=== PATIENT | female | born 1950 | race Caucasian/White ===

== ENCOUNTER 2021-12-30 16:32 | Outpatient (CLI) | payer MEDICARE, BC, SELFPAY ==
[2021-12-30 11:43] LABS: Abs Immature Grans 0.01 10^3/uL (0.0-0.06); Absolute Basophil Count 0.02 10^3/uL (0.0-0.2); Absolute Eosinophil Count 0.01 10^3/uL (0.0-0.7); Absolute Lymphocyte Count 1.02 10^3/uL (1.2-3.4); Absolute Monocyte Count 0.36 10^3/uL (0.1-0.8); Basophils % 0.5; Eosinophils % 0.2; HCT 38.3 % (36.0-46.0); HGB 12.7 g/dL (11.2-15.7); Immature Grans % 0.2; Lymphocytes % 24.8; MCHC 33.2 % (32.0-36.0); MCV 90.3 fL (80-95); MPV 9.1 fL (8.0-11.0); Monocytes % 8.7; Neutrophils % 65.6; Platelet Count 223 10^3/uL (130-400); RBC 4.24 10^6/uL (3.93-5.22); RDW 12.1 % (11.7-14.6); RDW-SD 40.1 fL; WBC 4.12 10^3/uL (4.4-10.8)
[2021-12-30 11:57] LABS: ALT 16 U/L (14-59); AST 17 U/L (15-37); Albumin 3.8 g/dL (3.4-5.0); Alkaline Phosphatase 90 U/L (46-116); Anion Gap 4.3 mmol/L (3-11); BUN 14 mg/dL (7-18); Bilirubin, Total 0.4 mg/dL (0.2-1.0); CO2 29.7 mmol/L (21.0-32.0); CREATININE 1.1 mg/dL (0.55-1.02); Calcium 9.1 mg/dL (8.5-10.1); Chloride 103 mmol/L (98-107); Estimated GFR 48.69 (mL/min/1.73m2); Glucose 85 mg/dL (74-106); Magnesium 2.2 mg/dL (1.8-2.4); Potassium 3.9 mmol/L (3.5-5.1); Sodium 137 mmol/L (136-145); Total Protein 7.3 g/dL (6.4-8.2)
== END 2021-12-30 16:33 | disposition home or self-care (01) ==
LOC: LBO 16:33
PROVIDERS: PCP Physician Assistant; Visit Provider Internal Medicine
DX: C52 Malignant neoplasm of vagina (principal)
CPT/HCPCS: 36415; 80053; 83735; 85025

== ENCOUNTER 2022-01-05 02:29 | Outpatient (CLI) | payer MEDICARE, BC, SELFPAY ==
[2022-01-05 13:05] LABS: Abs Immature Grans 0.05 10^3/uL (0.0-0.06); Absolute Basophil Count 0.02 10^3/uL (0.0-0.2); Absolute Eosinophil Count 0.12 10^3/uL (0.0-0.7); Absolute Lymphocyte Count 0.67 10^3/uL (1.2-3.4); Absolute Monocyte Count 0.38 10^3/uL (0.1-0.8); Absolute Neutrophil Count 3.65 10^3/uL (1.2-6.7); Basophils % 0.4; Eosinophils % 2.5; HCT 37.4 % (36.0-46.0); HGB 12.2 g/dL (11.2-15.7); Lymphocytes % 13.7; MCH 29.3 pg (27.0-33.0); MCHC 32.6 % (32.0-36.0); MCV 90 fL (80-95); MPV 9.1 fL (8.0-11.0); Monocytes % 7.8; Neutrophils % 74.6; Platelet Count 171 10^3/uL (130-400); RBC 4.17 10^6/uL (3.93-5.22); RDW-SD 39.4 fL; WBC 4.89 10^3/uL (4.4-10.8)
[2022-01-05 13:30] LABS: ALT 25 U/L (14-59); AST 21 U/L (15-37); Albumin 3.5 g/dL (3.4-5.0); Alkaline Phosphatase 84 U/L (46-116); BUN 23 mg/dL (7-18); Bilirubin, Total 0.4 mg/dL (0.2-1.0); CREATININE 1.2 mg/dL (0.55-1.02); Calcium 8.8 mg/dL (8.5-10.1); Chloride 102 mmol/L (98-107); Estimated GFR 44.04 (mL/min/1.73m2); Glucose 112 mg/dL (74-106); Potassium 3.9 mmol/L (3.5-5.1); Sodium 135 mmol/L (136-145); Total Protein 6.9 g/dL (6.4-8.2)
== END 2022-01-05 02:30 | disposition home or self-care (01) ==
LOC: LBO 02:29
PROVIDERS: PCP Physician Assistant; Visit Provider Internal Medicine
DX: C52 Malignant neoplasm of vagina (principal)
CPT/HCPCS: 36415; 80053; 83735; 85025

== ENCOUNTER 2022-01-12 01:45 | Outpatient (CLI) | payer MEDICARE, BC, SELFPAY ==
[2022-01-12 12:15] LABS: Abs Immature Grans 0.01 10^3/uL (0.0-0.06); Absolute Basophil Count 0.01 10^3/uL (0.0-0.2); Absolute Eosinophil Count 0.08 10^3/uL (0.0-0.7); Absolute Lymphocyte Count 0.45 10^3/uL (1.2-3.4); Absolute Monocyte Count 0.37 10^3/uL (0.1-0.8); Absolute Neutrophil Count 4.41 10^3/uL (1.2-6.7); Basophils % 0.2; Eosinophils % 1.5; HCT 33.8 % (36.0-46.0); HGB 11.2 g/dL (11.2-15.7); Immature Grans % 0.2; Lymphocytes % 8.4; MCH 29.6 pg (27.0-33.0); MCHC 33.1 % (32.0-36.0); MCV 89 fL (80-95); MPV 8.9 fL (8.0-11.0); Monocytes % 6.9; Neutrophils % 82.8; Platelet Count 139 10^3/uL (130-400); RBC 3.79 10^6/uL (3.93-5.22); RDW 11.9 % (11.7-14.6); WBC 5.33 10^3/uL (4.4-10.8)
[2022-01-12 12:33] LABS: ALT 29 U/L (14-59); AST 21 U/L (15-37); Albumin 3.5 g/dL (3.4-5.0); Alkaline Phosphatase 87 U/L (46-116); Anion Gap 6.1 mmol/L (3-11); BUN 21 mg/dL (7-18); Bilirubin, Total 0.5 mg/dL (0.2-1.0); CO2 28.9 mmol/L (21.0-32.0); CREATININE 1.2 mg/dL (0.55-1.02); Calcium 8.6 mg/dL (8.5-10.1); Chloride 98 mmol/L (98-107); Estimated GFR 44.04 (mL/min/1.73m2); Glucose 87 mg/dL (74-106); Magnesium 1.4 mg/dL (1.8-2.4); Potassium 3.7 mmol/L (3.5-5.1); Sodium 133 mmol/L (136-145); Total Protein 6.8 g/dL (6.4-8.2)
== END 2022-01-12 01:46 | disposition home or self-care (01) ==
LOC: LBO 01:46
PROVIDERS: PCP Physician Assistant; Visit Provider Internal Medicine
DX: C52 Malignant neoplasm of vagina (principal)
CPT/HCPCS: 36415; 80053; 83735; 85025

== ENCOUNTER 2022-01-19 03:31 | Outpatient (CLI) | payer MEDICARE, BC, SELFPAY ==
[2022-01-19 11:50] LABS: Abs Immature Grans 0.01 10^3/uL (0.0-0.06); Absolute Basophil Count 0.02 10^3/uL (0.0-0.2); Absolute Eosinophil Count 0.15 10^3/uL (0.0-0.7); Absolute Lymphocyte Count 0.44 10^3/uL (1.2-3.4); Absolute Monocyte Count 0.42 10^3/uL (0.1-0.8); Absolute Neutrophil Count 2.57 10^3/uL (1.2-6.7); Basophils % 0.6; Eosinophils % 4.2; HCT 31.3 % (36.0-46.0); HGB 10.3 g/dL (11.2-15.7); Immature Grans % 0.3; Lymphocytes % 12.2; MCH 29.4 pg (27.0-33.0); MCHC 32.9 % (32.0-36.0); MCV 89 fL (80-95); MPV 8.9 fL (8.0-11.0); Monocytes % 11.6; Neutrophils % 71.1; Platelet Count 125 10^3/uL (130-400); RDW 11.9 % (11.7-14.6); RDW-SD 37.8 fL; WBC 3.61 10^3/uL (4.4-10.8)
[2022-01-19 12:10] LABS: ALT 25 U/L (14-59); AST 18 U/L (15-37); Albumin 3.4 g/dL (3.4-5.0); Alkaline Phosphatase 77 U/L (46-116); Anion Gap 6.6 mmol/L (3-11); BUN 19 mg/dL (7-18); Bilirubin, Total 0.3 mg/dL (0.2-1.0); CO2 29.4 mmol/L (21.0-32.0); CREATININE 1.3 mg/dL (0.55-1.02); Calcium 8.6 mg/dL (8.5-10.1); Chloride 98 mmol/L (98-107); Estimated GFR 40.15 (mL/min/1.73m2); Glucose 88 mg/dL (74-106); Potassium 3.8 mmol/L (3.5-5.1); Sodium 134 mmol/L (136-145); Total Protein 6.6 g/dL (6.4-8.2)
== END 2022-01-19 03:32 | disposition home or self-care (01) ==
LOC: LBO 03:31
PROVIDERS: PCP Physician Assistant; Visit Provider Internal Medicine
DX: C52 Malignant neoplasm of vagina (principal)
CPT/HCPCS: 36415; 80053; 83735; 85025

== ENCOUNTER 2022-01-26 03:12 | Outpatient (CLI) | payer MEDICARE, BC, SELFPAY ==
[2022-01-26 09:40] LABS: Abs Immature Grans 0.01 10^3/uL (0.0-0.06); Absolute Basophil Count 0.01 10^3/uL (0.0-0.2); Absolute Eosinophil Count 0.05 10^3/uL (0.0-0.7); Absolute Monocyte Count 0.33 10^3/uL (0.1-0.8); Absolute Neutrophil Count 2.23 10^3/uL (1.2-6.7); Basophils % 0.3; Eosinophils % 1.7; HCT 31.4 % (36.0-46.0); HGB 10.6 g/dL (11.2-15.7); Immature Grans % 0.3; Lymphocytes % 10.2; MCH 29.6 pg (27.0-33.0); MCHC 33.8 % (32.0-36.0); MCV 88 fL (80-95); MPV 9.5 fL (8.0-11.0); Monocytes % 11.3; Neutrophils % 76.2; RBC 3.58 10^6/uL (3.93-5.22); RDW 11.7 % (11.7-14.6); RDW-SD 37.6 fL; WBC 2.93 10^3/uL (4.4-10.8)
[2022-01-26 09:51] LABS: ALT 44 U/L (14-59); AST 24 U/L (15-37); Albumin 3.4 g/dL (3.4-5.0); Alkaline Phosphatase 80 U/L (46-116); BUN 21 mg/dL (7-18); Bilirubin, Total 0.3 mg/dL (0.2-1.0); CREATININE 1.2 mg/dL (0.55-1.02); Calcium 8.8 mg/dL (8.5-10.1); Chloride 97 mmol/L (98-107); Estimated GFR 44.04 (mL/min/1.73m2); Glucose 91 mg/dL (74-106); Magnesium 1.9 mg/dL (1.8-2.4); Potassium 3.6 mmol/L (3.5-5.1); Sodium 133 mmol/L (136-145); Total Protein 6.7 g/dL (6.4-8.2)
[2022-01-26 10:03] LABS: Platelet Count 79 10^3/uL (130-400)
== END 2022-01-26 03:13 | disposition home or self-care (01) ==
LOC: LBO 03:13
PROVIDERS: PCP Physician Assistant; Visit Provider Internal Medicine
DX: C52 Malignant neoplasm of vagina (principal)
CPT/HCPCS: 36415; 80053; 83735; 85025

== ENCOUNTER 2022-02-03 02:46 | Outpatient (CLI) | payer MEDICARE, BC, SELFPAY ==
[2022-02-03 08:51] LABS: Absolute Basophil Count 0.01 10^3/uL (0.0-0.2); Absolute Eosinophil Count 0.02 10^3/uL (0.0-0.7); Absolute Lymphocyte Count 0.21 10^3/uL (1.2-3.4); Absolute Monocyte Count 0.14 10^3/uL (0.1-0.8); Absolute Neutrophil Count 0.66 10^3/uL (1.2-6.7); Eosinophils % 1.9; HCT 26.7 % (36.0-46.0); HGB 9.2 g/dL (11.2-15.7); Lymphocytes % 20.2; MCH 29.2 pg (27.0-33.0); MCHC 34.5 % (32.0-36.0); MCV 85 fL (80-95); MPV 9.3 fL (8.0-11.0); Monocytes % 13.5; Neutrophils % 63.4; RBC 3.15 10^6/uL (3.93-5.22); RDW 11.7 % (11.7-14.6); RDW-SD 35.4 fL
[2022-02-03 09:05] LABS: ALT 32 U/L (14-59); AST 20 U/L (15-37); Albumin 3.2 g/dL (3.4-5.0); Alkaline Phosphatase 72 U/L (46-116); BUN 16 mg/dL (7-18); Bilirubin, Total 0.3 mg/dL (0.2-1.0); CREATININE 1.3 mg/dL (0.55-1.02); Calcium 8.9 mg/dL (8.5-10.1); Chloride 103 mmol/L (98-107); Estimated GFR 40.15 (mL/min/1.73m2); Glucose 100 mg/dL (74-106); Magnesium 1.6 mg/dL (1.8-2.4); Potassium 3.9 mmol/L (3.5-5.1); Sodium 139 mmol/L (136-145); Total Protein 6.3 g/dL (6.4-8.2)
[2022-02-03 09:49] LABS: Diff Comment Agrees w/ Instrument; RBC Morphology Normal
[2022-02-03 09:58] LABS: Platelet Count 44 10^3/uL (130-400); WBC 1.04 10^3/uL (4.4-10.8)
== END 2022-02-03 02:47 | disposition home or self-care (01) ==
LOC: LBO 02:46
PROVIDERS: Internal Medicine; PCP Physician Assistant; Visit Provider Internal Medicine Hematology & Oncology
DX: C52 Malignant neoplasm of vagina (principal)
CPT/HCPCS: 36415; 80053; 83735; 85025

== ENCOUNTER 2022-02-10 01:23 | Outpatient (CLI) | payer MEDICARE, BC, SELFPAY ==
[2022-02-10 09:33] LABS: HCT 24.8 % (36.0-46.0); HGB 8.6 g/dL (11.2-15.7); MCH 29.7 pg (27.0-33.0); MCHC 34.7 % (32.0-36.0); MCV 86 fL (80-95); MPV 9.4 fL (8.0-11.0); Platelet Count 122 10^3/uL (130-400); RDW 12.1 % (11.7-14.6); RDW-SD 35.9 fL
[2022-02-10 09:50] LABS: ALT 22 U/L (14-59); AST 18 U/L (15-37); Albumin 3.3 g/dL (3.4-5.0); Alkaline Phosphatase 73 U/L (46-116); Anion Gap 5.6 mmol/L (3-11); BUN 22 mg/dL (7-18); Bilirubin, Total 0.3 mg/dL (0.2-1.0); CO2 30.4 mmol/L (21.0-32.0); CREATININE 1.2 mg/dL (0.55-1.02); Calcium 8.9 mg/dL (8.5-10.1); Chloride 101 mmol/L (98-107); Estimated GFR 44.04 (mL/min/1.73m2); Glucose 95 mg/dL (74-106); Magnesium 1.9 mg/dL (1.8-2.4); Potassium 4.4 mmol/L (3.5-5.1); Sodium 137 mmol/L (136-145); Total Protein 6.4 g/dL (6.4-8.2)
[2022-02-10 10:02] LABS: Bands % 1
[2022-02-10 10:03] LABS: Absolute Eosinophil Count 0.03 10^3/uL (0.0-0.7); Absolute Lymphocyte Count 0.42 10^3/uL (1.2-3.4); Absolute Monocyte Count 0.34 10^3/uL (0.1-0.8); Diff Comment Manual Differential; RBC Morphology Normal
[2022-02-10 10:13] LABS: WBC 1.16 10^3/uL (4.4-10.8)
[2022-02-10 10:14] LABS: Absolute Neutrophil Count 0.37 10^3/uL (1.2-6.7)
== END 2022-02-10 01:24 | disposition home or self-care (01) ==
LOC: LBO 01:25
PROVIDERS: PCP Physician Assistant; Visit Provider Internal Medicine
DX: C52 Malignant neoplasm of vagina (principal)
CPT/HCPCS: 36415; 80053; 83735; 85025

== ENCOUNTER 2022-02-17 02:19 | Outpatient (CLI) | payer MEDICARE, BC, SELFPAY ==
[2022-02-17 08:14] LABS: Absolute Eosinophil Count 0.02 10^3/uL (0.0-0.7); HCT 24.8 % (36.0-46.0); HGB 8.2 g/dL (11.2-15.7); MCH 29.3 pg (27.0-33.0); MCHC 33.1 % (32.0-36.0); MCV 89 fL (80-95); MPV 8.9 fL (8.0-11.0); Platelet Count 220 10^3/uL (130-400); RDW-SD 39.4 fL; WBC 2.19 10^3/uL (4.4-10.8)
[2022-02-17 08:35] LABS: ALT 18 U/L (14-59); AST 17 U/L (15-37); Albumin 3.3 g/dL (3.4-5.0); Alkaline Phosphatase 65 U/L (46-116); Anion Gap 4.5 mmol/L (3-11); BUN 16 mg/dL (7-18); Bilirubin, Total 0.2 mg/dL (0.2-1.0); CO2 30.5 mmol/L (21.0-32.0); CREATININE 1.3 mg/dL (0.55-1.02); Calcium 9.1 mg/dL (8.5-10.1); Chloride 104 mmol/L (98-107); Estimated GFR 40.15 (mL/min/1.73m2); Glucose 94 mg/dL (74-106); Potassium 4.3 mmol/L (3.5-5.1); Sodium 139 mmol/L (136-145); Total Protein 6.4 g/dL (6.4-8.2)
[2022-02-17 08:43] LABS: Absolute Lymphocyte Count 0.31 10^3/uL (1.2-3.4); Absolute Monocyte Count 0.44 10^3/uL (0.1-0.8); Absolute Neutrophil Count 1.36 10^3/uL (1.2-6.7); Bands % 2; Diff Comment Manual Differential
[2022-02-17 08:44] LABS: Absolute Basophil Count 0.04 10^3/uL (0.0-0.2); Metamyelocytes % 1; Polychromasia Present
== END 2022-02-17 02:20 | disposition home or self-care (01) ==
LOC: LBO 02:19
PROVIDERS: PCP Physician Assistant; Visit Provider Internal Medicine
DX: C52 Malignant neoplasm of vagina (principal)
CPT/HCPCS: 36415; 80053; 83735; 85025

== ENCOUNTER 2022-02-19 04:04 | Outpatient (CLI) | payer MEDICARE, BC, SELFPAY ==
[2022-02-19 13:10] LABS: Abs Immature Grans 0.05 10^3/uL (0.0-0.06); Absolute Basophil Count 0.02 10^3/uL (0.0-0.2); Absolute Eosinophil Count 0.02 10^3/uL (0.0-0.7); Absolute Lymphocyte Count 0.35 10^3/uL (1.2-3.4); Absolute Monocyte Count 0.61 10^3/uL (0.1-0.8); Absolute Neutrophil Count 1.49 10^3/uL (1.2-6.7); Basophils % 0.8; Eosinophils % 0.8; HCT 23.5 % (36.0-46.0); HGB 7.9 g/dL (11.2-15.7); Lymphocytes % 13.8; MCH 29.6 pg (27.0-33.0); MCHC 33.6 % (32.0-36.0); MCV 88 fL (80-95); MPV 8.6 fL (8.0-11.0); Neutrophils % 58.6; Platelet Count 219 10^3/uL (130-400); RBC 2.67 10^6/uL (3.93-5.22); RDW 14.6 % (11.7-14.6); RDW-SD 41.4 fL; WBC 2.54 10^3/uL (4.4-10.8)
[2022-02-19 13:32] LABS: ALT 17 U/L (14-59); AST 14 U/L (15-37); Albumin 3.2 g/dL (3.4-5.0); Alkaline Phosphatase 62 U/L (46-116); Anion Gap 4.5 mmol/L (3-11); BUN 15 mg/dL (7-18); Bilirubin, Total 0.2 mg/dL (0.2-1.0); CO2 31.5 mmol/L (21.0-32.0); CREATININE 1.2 mg/dL (0.55-1.02); Calcium 8.9 mg/dL (8.5-10.1); Chloride 105 mmol/L (98-107); Estimated GFR 44.04 (mL/min/1.73m2); Glucose 133 mg/dL (74-106); Potassium 4.2 mmol/L (3.5-5.1); Sodium 141 mmol/L (136-145); Total Protein 6.3 g/dL (6.4-8.2)
== END 2022-02-19 04:05 | disposition home or self-care (01) ==
LOC: LBO 04:04
PROVIDERS: Internal Medicine; PCP Physician Assistant; Visit Provider Radiology Radiation Oncology
DX: C52 Malignant neoplasm of vagina (principal)
CPT/HCPCS: 36415; 80053; 83735; 85025

== ENCOUNTER 2022-02-24 09:11 | Outpatient (CLI) | payer MEDICARE, BC, SELFPAY ==
[2022-02-24 08:47] LABS: Abs Immature Grans 0.02 10^3/uL (0.0-0.06); Absolute Basophil Count 0.01 10^3/uL (0.0-0.2); Absolute Eosinophil Count 0.01 10^3/uL (0.0-0.7); Absolute Monocyte Count 0.54 10^3/uL (0.1-0.8); Absolute Neutrophil Count 1.79 10^3/uL (1.2-6.7); Basophils % 0.4; Eosinophils % 0.4; HGB 8.7 g/dL (11.2-15.7); Immature Grans % 0.7; Lymphocytes % 11.2; MCH 29.8 pg (27.0-33.0); MCHC 33.5 % (32.0-36.0); MCV 89 fL (80-95); MPV 9.1 fL (8.0-11.0); Monocytes % 20.2; Neutrophils % 67.1; Platelet Count 240 10^3/uL (130-400); RBC 2.92 10^6/uL (3.93-5.22); RDW 15.8 % (11.7-14.6); RDW-SD 49.1 fL; WBC 2.67 10^3/uL (4.4-10.8)
[2022-02-24 08:58] LABS: ALT 16 U/L (14-59); AST 14 U/L (15-37); Albumin 3.3 g/dL (3.4-5.0); Alkaline Phosphatase 60 U/L (46-116); BUN 18 mg/dL (7-18); Bilirubin, Total 0.2 mg/dL (0.2-1.0); CREATININE 1.3 mg/dL (0.55-1.02); Calcium 9.2 mg/dL (8.5-10.1); Chloride 101 mmol/L (98-107); Estimated GFR 40.04 (mL/min/1.73m2); Glucose 95 mg/dL (74-106); Magnesium 1.9 mg/dL (1.8-2.4); Potassium 3.9 mmol/L (3.5-5.1); Sodium 138 mmol/L (136-145); Total Protein 6.5 g/dL (6.4-8.2)
== END 2022-02-24 09:12 | disposition home or self-care (01) ==
LOC: LBO 09:12
PROVIDERS: PCP Physician Assistant; Visit Provider Internal Medicine
DX: C52 Malignant neoplasm of vagina (principal)
CPT/HCPCS: 36415; 80053; 83735; 85025

== ENCOUNTER 2022-04-20 11:55 | Outpatient (CLI) | payer MEDICARE, BC, SELFPAY ==
[2022-04-20 12:05] LABS: Abs Immature Grans 0.01 10^3/uL (0.0-0.06); Absolute Basophil Count 0.01 10^3/uL (0.0-0.2); Absolute Eosinophil Count 0.04 10^3/uL (0.0-0.7); Absolute Monocyte Count 0.37 10^3/uL (0.1-0.8); Basophils % 0.3; Eosinophils % 1.2; HCT 28.1 % (36.0-46.0); HGB 9.5 g/dL (11.2-15.7); Immature Grans % 0.3; MCH 32.8 pg (27.0-33.0); MCHC 33.8 % (32.0-36.0); MCV 97 fL (80-95); MPV 8.8 fL (8.0-11.0); Monocytes % 11.1; Neutrophils % 72.1; Platelet Count 155 10^3/uL (130-400); RDW 12.7 % (11.7-14.6); RDW-SD 44.5 fL; WBC 3.33 10^3/uL (4.4-10.8)
== END 2022-04-20 11:56 | disposition home or self-care (01) ==
LOC: LBO 11:56
PROVIDERS: PCP Physician Assistant; Visit Provider Radiology Radiation Oncology
DX: C52 Malignant neoplasm of vagina (principal); Z92.3 Personal history of irradiation
CPT/HCPCS: 36415; 85025